=== PATIENT | male | born 1995 | race Caucasian/White ===

== ENCOUNTER 2016-10-13 13:47 | Emergency (ER) | payer MEDICAID, SELFPAY ==
[2016-10-13] MEDS ORDERED: LIDOCAINE 2% MDV 20 ML VIAL As Ordered ONE (14:32)
[2016-10-13] MEDS ORDERED: ADACEL/BOOSTRIX VACCINE (DIPHTH/PERTUSS/ACELL/TETANUS)0.5ML SYR (90715) As Ordered ONE (14:33)
[2016-10-13] MEDS ORDERED: AMMONIA AROMATIC INHALANT (FLOOR STOCK) As Ordered ONE (15:13)
--- NOTE | 2016-10-13 15:21 | REP ---
LEFT FINGERS, FOUR VIEWS: HISTORY: Foreign body. A nail is present in the soft tissue anterior to the distal phalanges of the 2nd and 3rd digits. There is no definite fracture or dislocation. The joint spaces are normal in appearance. IMPRESSION: A nail is present in the anterior soft tissue of the distal phalanges of the second and third digits. . Signed by Pramod Alvarez MD 10/13/2016 03:24 P
[2016-10-13] MEDS ORDERED: cefTRIAXone SOD 1 GM VIAL (J0696) As Ordered ONE (15:29)
--- NOTE | 2016-10-13 15:42 | REP ---
LEFT FINGERS, FOUR VIEWS: HISTORY: Foreign body removal. COMPARISON: 2:45 pm 10/13/2016. The patient is status post removal of a nail from the ventral soft tissue of the distal phalanges of the 2nd and 3rd digits. There is a small fracture along the ventral aspect of the distal phalange of the 2nd digit. There is no dislocation. The joint spaces are normal in appearance. IMPRESSION: 1. The patient is status post removal of a nail from the ventral soft tissue of the distal phalanges of the 2nd and 3rd digits. 2. Small fracture of the ventral surface of the distal phalange of the 2nd digit. Signed by Pramod Alvarez MD 10/13/2016 03:48 P
--- NOTE | 2016-10-13 15:55 | EDDOCDS ---
Physician Documentation [facility] Name: Mohit Bishop Age: 21 yrs Sex: Male : 1995 Arrival Date: 10/13/2016 Time: 13:47 Bed I7 / 29 Private MD: NO PRIMARY PHYSICIAN, . Disposition: 10/13/16 15:31 Discharged to Home/Self Care. Impression: Puncture wound with foreign body of left index finger with damage to nail, Puncture wound with foreign body of left middle finger without damage to nail, Nondisplaced fracture of distal phalanx of left index finger - OPEN Fx. - Condition is Stable. - Discharge Instructions: VIS, Tetanus, Diphtheria (Td) - CDC, Finger Fracture, [id number], Puncture Wound, [id number]. - Prescriptions for Augmentin 875- 125 mg Oral Tablet - take 1 tablet by ORAL route every 12 hours for 10 days; 20 tablet. Diclofenac Sodium 75 mg Oral Tablet, Delayed Release (E.C.) - take 1 tablet by ORAL route 2 times per day; 30 tablet. Tramadol 50 mg Oral Tablet - take 1 tablet by ORAL route 4 times per day As needed MDD: 4 tabs; 20 tablet. - Medication Reconciliation, Local Pharmacy Hours form. - Follow up: Orthopaedics, [facility]; When: Tomorrow; Reason: Further diagnostic work-up, Recheck today's complaints, Continuance of care. - Problem is new. - Symptoms have improved. Historical: - Allergies: No known drug Allergies; - Home Meds: 1. none - PMHx: none; - PSHx: none; - Social history: Smoking status: Patient uses tobacco products, light tobacco smoker. No barriers to communication noted, The patient speaks fluent Kiswahili. - Family history: Not pertinent. - : The pt / caregiver states he / she is not on anticoagulants. Home medication list is obtained from the patient. - Exposure Risk Screening:: None identified. - Tetanus status: unknown. Vital Signs: 10/13 13:49 BP 168 / 74; Pulse 72; Resp 18; Temp 98.8(O); Pulse Ox 100% on R/A; Weight 65.77 kg / elp 145 lbs (R); Height 5 ft. 9 in. (175.26 cm) (R); Pain 8/10; 15:34 BP 164 / 92; Pulse 54; Resp 18; Temp 98.5(O); Pulse Ox 99% on R/A; Pain 0/10; dem1 13:49 Body Mass Index 21.41 (65.77 kg, 175.26 cm) elp Procedures: 15:36 Foreign Body Removal: a nail, from the left palmar aspect of distal phalanx of left btw middle finger and palmar aspect of distal phalanx of left index finger, by Pliers. Dressing: fei was used to dress the wound, The patient tolerated the removal well, Digital block of LEFT 2nd and 3rd fingers with 4mL total of 2% lidocaine without Epi. Pt noted good effect. . 15:38 Fracture care/splinting: (Stabilizing Care) Splint applied to palmar aspect of distal btw phalanx of left index finger and palmar aspect of distal phalanx of left middle finger using finger splint, applied by myself. post reduction film - FB completely removed, Examined by me, post splint application: neurovascular intact, 2+ distal pulses palpable, brisk capillary refill noted, Patient tolerated well. MDM: 14:23 Lidocaine 20 mg/mL (2 %) 10 ml Infiltration once; to bedside ordered. btw 14:23 Tetanus- Diptheria-Acellular Pertussis 0.5 ml IM once; Routine booster 10-64yrs, >64 btw with child contact [employer] ordered. 14:25 Fingers Ordered. EDMS 14:26 Tetanus- Diptheria-Acellular Pertussis 0.5 ml IM once; Routine booster 10-64yrs, >64 cjh with child contact [employer] ordered. 14:26 Lidocaine 20 mg/mL (2 %) 10 ml Infiltration once; to bedside ordered. [facility] 15:00 [facility] Payment Agreement was scanned into [employer] and attached to record. jp5 15:00 Financial registration complete. jp5 15:12 Fingers Ordered. EDMS 15:28 cefTRIAXone 1 grams IM once ordered. btw 15:29 Wound Care ordered. btw Administered Medications: 14:37 Drug: Tetanus- Diptheria-Acellular Pertussis 0.5 ml [diphth,pertussis(acel),tetanus 2.5 dsf Lf unit-8 mcg-5 Lf/0.5mL IM syringe (0.5 mL)] {Civil Rights Investigator: [employer]. Exp: 11/03/2018. Lot #: [id number]. } Route: IM; Site: right deltoid; 14:38 Drug: Lidocaine 10 ml [lidocaine 20 mg/mL (2 %) injection solution (10 mL)] Route: dsf Infiltration; 15:33 Drug: cefTRIAXone 1 grams [ceftriaxone 1 gram solution for injection (1 grams)] Route: srm IM; Site: left deltoid; Signatures: Dispatcher MedHost EDJuli Baer RN RN Edna Bennett RN RN Lino Murphy PA PA btw Fuller, Desiree, RN RN dsf Hafner, JaneRN RN [facility] Leilani Pillai jp5 The chart was reviewed and I authenticate all verbal orders and agree with the evaluation and treatment provided.Attachments: 15:00 [facility] Payment Agreement jp5 MTDD
--- NOTE | 2016-10-13 15:55 | EDDOCDS ---
Nurse's Notes [facility] Name: Mohit Bishop Age: 21 yrs Sex: Male : 1995 Arrival Date: 10/13/2016 Time: 13:47 Bed I7 / 29 Private MD: NO PRIMARY PHYSICIAN, . Diagnosis: Puncture wound with foreign body of left index finger with damage to nail;Puncture wound with foreign body of left middle finger without damage to nail;Nondisplaced fracture of distal phalanx of left index finger-OPEN Fx Presentation: 10/13 14:07 Presenting complaint: Patient states: 1 hour ago was using a power nail gun ,nailing a kpj stud and nail went through the index into the middle finger. Adult Sepsis Screening: The patient does not have new or worsening altered mentation. Patient's respiratory rate is less than 22. Systolic blood pressure is greater than 100. Patient has a qSOFA score of 0- Negative Sepsis Screen. Suicide/Homicide risk assessment- the patient denies having any suicidal and/or homicidal ideations and does not present with any other emotional, behavioral or mental health complaints. Status: Patient is not a director of creative services or dependent. Transition of care: patient was not received from another setting of care. 14:07 Acuity: TRISTEN Level 3 kpj 14:07 Method Of Arrival: Walkin/Carried/Asstd kpj Triage Assessment: 14:10 General: Appears uncomfortable, Behavior is appropriate for age, pleasant. Pain: kpj Location: dorsal aspect of distal phalanx of left middle finger, palmar aspect of distal phalanx of left middle finger, palmar aspect of distal phalanx of left index finger and left index fingernail Pain currently is 7 out of 10 on a pain scale. Pt Declines HIV testing. Neurological: Level of Consciousness is awake, alert, Oriented to person, place, time. Respiratory: Airway is patent Respiratory effort is even, unlabored. Derm: Skin is pink, warm & dry. Musculoskeletal: Circulation, motion, and sensation intact Capillary refill < 3 seconds in left fingers 3 inch barbed framing nail through distal left index finger into distal left middle finger with glove still on left middle finger. Historical: - Allergies: No known drug Allergies; - Home Meds: 1. none - PMHx: none; - PSHx: none; - Social history: Smoking status: Patient uses tobacco products, light tobacco smoker. No barriers to communication noted, The patient speaks fluent Hong Konger. - Family history: Not pertinent. - : The pt / caregiver states he / she is not on anticoagulants. Home medication list is obtained from the patient. - Exposure Risk Screening:: None identified. - Tetanus status: unknown. Screenin:42 Screening information is obtained from the patient. Fall risk: No risks identified. srm Assistance ADL's: requires no assistance with activities of daily living. Abuse/DV Screen: The patient / caregiver reports he/she is: not in a situation that causes fear, pain or injury. Nutritional screening: No deficits noted. Advance Directives: There is no active DNR order. home support is adequate. Assessment: 14:38 Adult Sepsis Screening: The patient does not have new or worsening altered mentation. dsf Patient's respiratory rate is less than 22. Systolic blood pressure is greater than 100. Patient has a qSOFA score of 0- Negative Sepsis Screen. General: Appears in no apparent distress, Behavior is appropriate for age, cooperative. Pain: Location: palmar aspect of distal phalanx of left index finger and palmar aspect of distal phalanx of left middle finger Pain currently is 8 out of 10 on a pain scale. Quality of pain is described as throbbing. Neurological: Level of Consciousness is awake, alert. Cardiovascular: No deficits noted. Respiratory: No deficits noted. Derm: Skin is pink, warm & dry. Musculoskeletal: nail thru distal phalanx of left index finger and left middle finger. 15:42 General: dressings and aluminum splints to left middle and index finger . tolerated srm well. 15:54 General: Appears in no apparent distress, comfortable, Behavior is appropriate for age, dsf cooperative. Pain: Denies pain. Neurological: Level of Consciousness is awake, alert. Cardiovascular: No deficits noted. Respiratory: No deficits noted. Derm: Skin is pink, warm & dry. Vital Signs: 13:49 BP 168 / 74; Pulse 72; Resp 18; Temp 98.8(O); Pulse Ox 100% on R/A; Weight 65.77 kg elp (R); Height 5 ft. 9 in. (175.26 cm) (R); Pain 8/10; 15:34 BP 164 / 92; Pulse 54; Resp 18; Temp 98.5(O); Pulse Ox 99% on R/A; Pain 0/10; dem1 13:49 Body Mass Index 21.41 (65.77 kg, 175.26 cm) elp Vitals: 13:49 Log In Time: October 13, 2016 at 13:46. elp ED Course: 13:48 Patient visited by Leah Lacey PCA. elp 13:48 Patient moved to Waiting elp 13:49 NO PRIMARY PHYSICIAN, . is Private Physician. elp 13:49 Patient visited by Leah Lacey PCA. elp 13:49 Patient moved to Pre RCE elp 14:09 Triage Initiated kp 14:12 Lino Rivers PA is PHCP. btw 14:12 Татьяна Menchaca MD is Attending Physician. btw 14:13 Patient moved to Triage 2 kpj 14:14 Patient visited by Lino Rivers PA. btw 14:27 Patient moved to I7 / 29 cjh 14:36 Patient moved to Radiology dem1 14:37 Patient moved to I7 / 29 dsf 14:39 Patient visited by Karen Eid RN. dsf 15:00 [facility] Payment Agreement was scanned into [employer] and attached to record. jp5 15:30 Patient name changed from Mohit\S\A\S\White\S\ to Mohit\S\Tommy\S\White. EDMS 15:30 Orthopaedics, [facility] is Referral Physician. btw 15:30 Fingers Returned. EDMS 15:36 Patient visited by Yadiel Mirza. [facility] 15:42 The patient / caregiver is instructed regarding the plan of care and ED course. srm Accompanied by Friend, Patient has correct armband on for positive identification. 15:42 No IV's were initiated during this patient's visit. No procedures done that require srm assistance. 15:43 Patient visited by Edna Salas, INO. srm Administered Medications: 14:37 Drug: Tetanus- Diptheria-Acellular Pertussis 0.5 ml [diphth,pertussis(acel),tetanus 2.5 dsf Lf unit-8 mcg-5 Lf/0.5mL IM syringe (0.5 mL)] {Busher Helper: [employer]. Exp: 11/03/2018. Lot #: [id number]. } Route: IM; Site: right deltoid; 14:38 Drug: Lidocaine 10 ml [lidocaine 20 mg/mL (2 %) injection solution (10 mL)] Route: dsf Infiltration; 15:33 Drug: cefTRIAXone 1 grams [ceftriaxone 1 gram solution for injection (1 grams)] Route: [facility] IM; Site: left deltoid; Order Results: Radiology Order: Fingers Test: Fingers REASON FOR EXAMINATION: Foreign Body; LEFT FINGERS, FOUR VIEWS:; ; HISTORY: Foreign body.; ; A nail is present in the soft tissue anterior to the distal phalanges of the 2nd; and 3rd digits. There is no definite fracture or dislocation. The joint spaces; are normal in appearance.; ; IMPRESSION:; ; A nail is present in the anterior soft tissue of the distal phalanges of the; second and third digits. .; ; ; ; Unreviewed; Outcome: 15:31 Discharge ordered by Provider. btw 15:54 Discharge Assessment: Patient awake, alert and oriented x 3. No cognitive and/or dsf functional deficits noted. Patient verbalized understanding of disposition instructions. patient administered narcotics - no. The following High Risk Discharge criteria are identified: None. Discharged to home ambulatory. Condition: stable. Discharge instructions given to patient, Instructed on discharge instructions, follow up and referral plans. medication usage, no driving heavy equipment, wound care, Demonstrated understanding of instructions, medications, Pt was receptive of discharge instructions/ teaching. Prescriptions given X 3. No special radiology studies were completed. Property sent home with patient. 15:55 Patient left the ED. dsf Signatures: Dispatcher [employer] EDJuli Baer RN RN kpj Michelson, Staci, RN RN srm Wolfenden, Brandon, PA PA btKaren Malagon RN RN dsf Mack, Demeishia dem1 Hafner, Jane, RN RN [facility] Leah Lacey, JAVY MATERIALS MANAGEMENT SUPERVISOR Leilani Guo jp5 [facility]
--- NOTE | 2016-10-15 16:56 | EDDOCDS ---
Nurse's Notes [facility] Name: Mohit Bishop Age: 21 yrs Sex: Male : 1995 Arrival Date: 10/13/2016 Time: 13:47 Bed I7 / 29 Private MD: NO PRIMARY PHYSICIAN, . Diagnosis: Puncture wound with foreign body of left index finger with damage to nail;Puncture wound with foreign body of left middle finger without damage to nail;Nondisplaced fracture of distal phalanx of left index finger-OPEN Fx Presentation: 10/13 14:07 Presenting complaint: Patient states: 1 hour ago was using a power nail gun ,nailing a kpj stud and nail went through the index into the middle finger. Adult Sepsis Screening: The patient does not have new or worsening altered mentation. Patient's respiratory rate is less than 22. Systolic blood pressure is greater than 100. Patient has a qSOFA score of 0- Negative Sepsis Screen. Suicide/Homicide risk assessment- the patient denies having any suicidal and/or homicidal ideations and does not present with any other emotional, behavioral or mental health complaints. Status: Patient is not a automotive service consultant or dependent. Transition of care: patient was not received from another setting of care. 14:07 Acuity: TRISTEN Level 3 kpj 14:07 Method Of Arrival: Walkin/Carried/Asstd kpj Triage Assessment: 14:10 General: Appears uncomfortable, Behavior is appropriate for age, pleasant. Pain: kpj Location: dorsal aspect of distal phalanx of left middle finger, palmar aspect of distal phalanx of left middle finger, palmar aspect of distal phalanx of left index finger and left index fingernail Pain currently is 7 out of 10 on a pain scale. Pt Declines HIV testing. Neurological: Level of Consciousness is awake, alert, Oriented to person, place, time. Respiratory: Airway is patent Respiratory effort is even, unlabored. Derm: Skin is pink, warm & dry. Musculoskeletal: Circulation, motion, and sensation intact Capillary refill < 3 seconds in left fingers 3 inch barbed framing nail through distal left index finger into distal left middle finger with glove still on left middle finger. Historical: - Allergies: No known drug Allergies; - Home Meds: 1. none - PMHx: none; - PSHx: none; - Social history: Smoking status: Patient uses tobacco products, light tobacco smoker. No barriers to communication noted, The patient speaks fluent [place]ian. - Family history: Not pertinent. - : The pt / caregiver states he / she is not on anticoagulants. Home medication list is obtained from the patient. - Exposure Risk Screening:: None identified. - Tetanus status: unknown. Screenin:42 Screening information is obtained from the patient. Fall risk: No risks identified. srm Assistance ADL's: requires no assistance with activities of daily living. Abuse/DV Screen: The patient / caregiver reports he/she is: not in a situation that causes fear, pain or injury. Nutritional screening: No deficits noted. Advance Directives: There is no active DNR order. home support is adequate. Assessment: 14:38 Adult Sepsis Screening: The patient does not have new or worsening altered mentation. dsf Patient's respiratory rate is less than 22. Systolic blood pressure is greater than 100. Patient has a qSOFA score of 0- Negative Sepsis Screen. General: Appears in no apparent distress, Behavior is appropriate for age, cooperative. Pain: Location: palmar aspect of distal phalanx of left index finger and palmar aspect of distal phalanx of left middle finger Pain currently is 8 out of 10 on a pain scale. Quality of pain is described as throbbing. Neurological: Level of Consciousness is awake, alert. Cardiovascular: No deficits noted. Respiratory: No deficits noted. Derm: Skin is pink, warm & dry. Musculoskeletal: nail thru distal phalanx of left index finger and left middle finger. 15:42 General: dressings and aluminum splints to left middle and index finger . tolerated srm well. 15:54 General: Appears in no apparent distress, comfortable, Behavior is appropriate for age, dsf cooperative. Pain: Denies pain. Neurological: Level of Consciousness is awake, alert. Cardiovascular: No deficits noted. Respiratory: No deficits noted. Derm: Skin is pink, warm & dry. Vital Signs: 13:49 BP 168 / 74; Pulse 72; Resp 18; Temp 98.8(O); Pulse Ox 100% on R/A; Weight 65.77 kg elp (R); Height 5 ft. 9 in. (175.26 cm) (R); Pain 8/10; 15:34 BP 164 / 92; Pulse 54; Resp 18; Temp 98.5(O); Pulse Ox 99% on R/A; Pain 0/10; dem1 13:49 Body Mass Index 21.41 (65.77 kg, 175.26 cm) elp Vitals: 13:49 Log In Time: October 13, 2016 at 13:46. elp ED Course: 13:48 Patient visited by Leah Lacey PCA. elp 13:48 Patient moved to Waiting elp 13:49 NO PRIMARY PHYSICIAN, . is Private Physician. elp 13:49 Patient visited by Leah Lacey PCA. elp 13:49 Patient moved to Pre RCE elp 14:09 Triage Initiated kp 14:12 Lino Rivers PA is PHCP. btw 14:12 Татьяна Menchaca MD is Attending Physician. btw 14:13 Patient moved to Triage 2 kpj 14:14 Patient visited by Lino Rivers PA. btw 14:27 Patient moved to I7 / 29 cj 14:36 Patient moved to Radiology dem1 14:37 Patient moved to I7 / 29 dsf 14:39 Patient visited by Karen Edi RN. dsf 15:00 [facility] Payment Agreement was scanned into [employer] and attached to record. jp5 15:30 Patient name changed from Mohit\S\A\S\White\S\ to Mohit\S\Tommy\S\White. EDMS [facility] b[facility] 15:30 Fingers Returned. EDMS 15:36 Patient visited by Yadiel Mirza. [facility] 15:42 The patient / caregiver is instructed regarding the plan of care and ED course. srm Accompanied by Friend, Patient has correct armband on for positive identification. 15:42 No IV's were initiated during this patient's visit. No procedures done that require srm assistance. 15:43 Patient visited by Edna Salas RN. srm 16:23 Fingers Returned. EDMS 10/14 11:48 T-Sheet-- Draft Copy was scanned into [employer] and attached to record. gb Administered Medications: 10/13 14:37 Drug: Tetanus- Diptheria-Acellular Pertussis 0.5 ml [diphth,pertussis(acel),tetanus 2.5 dsf Lf unit-8 mcg-5 Lf/0.5mL IM syringe (0.5 mL)] {Lease Administrator: [employer]. Exp: 11/03/2018. Lot #: [id number]. } Route: IM; Site: right deltoid; 14:38 Drug: Lidocaine 10 ml [lidocaine 20 mg/mL (2 %) injection solution (10 mL)] Route: dsf Infiltration; 15:33 Drug: cefTRIAXone 1 grams [ceftriaxone 1 gram solution for injection (1 grams)] Route: srm IM; Site: left deltoid; Order Results: Radiology Order: Fingers Test: Fingers REASON FOR EXAMINATION: Foreign Body; LEFT FINGERS, FOUR VIEWS:; ; HISTORY: Foreign body.; ; A nail is present in the soft tissue anterior to the distal phalanges of the 2nd; and 3rd digits. There is no definite fracture or dislocation. The joint spaces; are normal in appearance.; ; IMPRESSION:; ; A nail is present in the anterior soft tissue of the distal phalanges of the; second and third digits. .; ; ; Signed by; Pramod Alvarez MD 10/13/2016 03:24 P; Radiology Order: Fingers Test: Fingers REASON FOR EXAMINATION: POST fb REMOVAL; LEFT FINGERS, FOUR VIEWS:; ; HISTORY: Foreign body removal.; ; COMPARISON: 2:45 pm 10/13/2016.; ; The patient is status post removal of a nail from the ventral soft tissue of the; distal phalanges of the 2nd and 3rd digits. There is a small fracture along the; ventral aspect of the distal phalange of the 2nd digit. There is no dislocation.; The joint spaces are normal in appearance.; ; IMPRESSION:; ; 1. The patient is status post removal of a nail from the ventral soft tissue of; the distal phalanges of the 2nd and 3rd digits.; ; 2. Small fracture of the ventral surface of the distal phalange of the 2nd; digit.; ; ; Signed by; Pramod Alvarez MD 10/13/2016 03:48 P; Outcome: 15:31 Discharge ordered by Provider. btw 15:54 Discharge Assessment: Patient awake, alert and oriented x 3. No cognitive and/or dsf functional deficits noted. Patient verbalized understanding of disposition instructions. patient administered narcotics - no. The following High Risk Discharge criteria are identified: None. Discharged to home ambulatory. Condition: stable. Discharge instructions given to patient, Instructed on discharge instructions, follow up and referral plans. medication usage, no driving heavy equipment, wound care, Demonstrated understanding of instructions, medications, Pt was receptive of discharge instructions/ teaching. Prescriptions given X 3. No special radiology studies were completed. Property sent home with patient. 15:55 Patient left the ED. dsf Signatures: Dispatcher MedHost EDJuli Baer RN RN Edna Saez RN RN [facility] Steph Humphrey, Reg Reg gb Lino Rivers PA PA btw Fuller, Desiree,RN RN Yadiel Buckley1 Radha ShelbyRN RN [facility] Leah Lacey, Leilani Rae jp5 Chart Complete [id number]
--- NOTE | 2016-10-15 16:56 | EDDOCDS ---
Physician Documentation [facility] Name: Mohit Bishop Age: 21 yrs Sex: Male : 1995 Arrival Date: 10/13/2016 Time: 13:47 Bed I7 / 29 Private MD: NO PRIMARY PHYSICIAN, . Disposition: 10/13/16 15:31 Discharged to Home/Self Care. Impression: Puncture wound with foreign body of left index finger with damage to nail, Puncture wound with foreign body of left middle finger without damage to nail, Nondisplaced fracture of distal phalanx of left index finger - OPEN Fx. - Condition is Stable. - Discharge Instructions: VIS, Tetanus, Diphtheria (Td) - CDC, Finger Fracture, [id number], Puncture Wound, [id number]. - Prescriptions for Augmentin 875- 125 mg Oral Tablet - take 1 tablet by ORAL route every 12 hours for 10 days; 20 tablet. Diclofenac Sodium 75 mg Oral Tablet, Delayed Release (E.C.) - take 1 tablet by ORAL route 2 times per day; 30 tablet. Tramadol 50 mg Oral Tablet - take 1 tablet by ORAL route 4 times per day As needed MDD: 4 tabs; 20 tablet. - Medication Reconciliation, Local Pharmacy Hours form. - Follow up: Orthopaedics, [facility]; When: Tomorrow; Reason: Further diagnostic work-up, Recheck today's complaints, Continuance of care. - Problem is new. - Symptoms have improved. Historical: - Allergies: No known drug Allergies; - Home Meds: 1. none - PMHx: none; - PSHx: none; - Social history: Smoking status: Patient uses tobacco products, light tobacco smoker. No barriers to communication noted, The patient speaks fluent Andorran. - Family history: Not pertinent. - : The pt / caregiver states he / she is not on anticoagulants. Home medication list is obtained from the patient. - Exposure Risk Screening:: None identified. - Tetanus status: unknown. Vital Signs: 10/13 13:49 BP 168 / 74; Pulse 72; Resp 18; Temp 98.8(O); Pulse Ox 100% on R/A; Weight 65.77 kg / elp 145 lbs (R); Height 5 ft. 9 in. (175.26 cm) (R); Pain 8/10; 15:34 BP 164 / 92; Pulse 54; Resp 18; Temp 98.5(O); Pulse Ox 99% on R/A; Pain 0/10; dem1 13:49 Body Mass Index 21.41 (65.77 kg, 175.26 cm) elp Procedures: 15:36 Foreign Body Removal: a nail, from the left palmar aspect of distal phalanx of left btw middle finger and palmar aspect of distal phalanx of left index finger, by Pliers. Dressing: fei was used to dress the wound, The patient tolerated the removal well, Digital block of LEFT 2nd and 3rd fingers with 4mL total of 2% lidocaine without Epi. Pt noted good effect. . 15:38 Fracture care/splinting: (Stabilizing Care) Splint applied to palmar aspect of distal btw phalanx of left index finger and palmar aspect of distal phalanx of left middle finger using finger splint, applied by myself. post reduction film - FB completely removed, Examined by me, post splint application: neurovascular intact, 2+ distal pulses palpable, brisk capillary refill noted, Patient tolerated well. MDM: 14:23 Lidocaine 20 mg/mL (2 %) 10 ml Infiltration once; to bedside ordered. btw 14:23 Tetanus- Diptheria-Acellular Pertussis 0.5 ml IM once; Routine booster 10-64yrs, >64 btw with child contact [employer] ordered. 14:25 Fingers Ordered. EDMS 14:26 Tetanus- Diptheria-Acellular Pertussis 0.5 ml IM once; Routine booster 10-64yrs, >64 cjh with child contact [employer] ordered. 14:26 Lidocaine 20 mg/mL (2 %) 10 ml Infiltration once; to bedside ordered. [facility] 15:00 [place] [place] Payment Agreement was scanned into [employer] and attached to record. jp5 15:00 Financial registration complete. jp5 15:12 Fingers Ordered. EDMS 15:28 cefTRIAXone 1 grams IM once ordered. btw 15:29 Wound Care ordered. btw 10/14 11:48 T-Sheet-- Draft Copy was scanned into [employer] and attached to record. gb Administered Medications: 10/13 14:37 Drug: Tetanus- Diptheria-Acellular Pertussis 0.5 ml [diphth,pertussis(acel),tetanus 2.5 dsf Lf unit-8 mcg-5 Lf/0.5mL IM syringe (0.5 mL)] {Waste Elimination: [employer]. Exp: 11/03/2018. Lot #: [id number]. } Route: IM; Site: right deltoid; 14:38 Drug: Lidocaine 10 ml [lidocaine 20 mg/mL (2 %) injection solution (10 mL)] Route: dsf Infiltration; 15:33 Drug: cefTRIAXone 1 grams [ceftriaxone 1 gram solution for injection (1 grams)] Route: srm IM; Site: left deltoid; Signatures: Dispatcher [employer] EDJuli Baer RN RN Edna Saez RN RN Steph Nicholson, Alejandro Reg Lino Dhillon PA PA btw Fuller, DesireeRN RN Radha CohenRN RN [facility] Leilani Plilai jp5 The chart was reviewed and I authenticate all verbal orders and agree with the evaluation and treatment provided.Attachments: 15:00 [facility] Payment Agreement jp5 10/14 11:48 T-Sheet-- Draft Copy gb Chart Complete MTDD
--- NOTE | 2016-10-15 16:56 | EDDOCDS ---
Physician Documentation [facility] Name: Mohit Bishop Age: 21 yrs Sex: Male : 1995 Arrival Date: 10/13/2016 Time: 13:47 Bed I7 / 29 Private MD: NO PRIMARY PHYSICIAN, . Disposition: 10/13/16 15:31 Discharged to Home/Self Care. Impression: Puncture wound with foreign body of left index finger with damage to nail, Puncture wound with foreign body of left middle finger without damage to nail, Nondisplaced fracture of distal phalanx of left index finger - OPEN Fx. - Condition is Stable. - Discharge Instructions: VIS, Tetanus, Diphtheria (Td) - CDC, Finger Fracture, [id number], Puncture Wound, [id number]. - Prescriptions for Augmentin 875- 125 mg Oral Tablet - take 1 tablet by ORAL route every 12 hours for 10 days; 20 tablet. Diclofenac Sodium 75 mg Oral Tablet, Delayed Release (E.C.) - take 1 tablet by ORAL route 2 times per day; 30 tablet. Tramadol 50 mg Oral Tablet - take 1 tablet by ORAL route 4 times per day As needed MDD: 4 tabs; 20 tablet. - Medication Reconciliation, Local Pharmacy Hours form. - Follow up: Orthopaedics, [facility]; When: Tomorrow; Reason: Further diagnostic work-up, Recheck today's complaints, Continuance of care. - Problem is new. - Symptoms have improved. Historical: - Allergies: No known drug Allergies; - Home Meds: 1. none - PMHx: none; - PSHx: none; - Social history: Smoking status: Patient uses tobacco products, light tobacco smoker. No barriers to communication noted, The patient speaks fluent Kuwaiti. - Family history: Not pertinent. - : The pt / caregiver states he / she is not on anticoagulants. Home medication list is obtained from the patient. - Exposure Risk Screening:: None identified. - Tetanus status: unknown. Vital Signs: 10/13 13:49 BP 168 / 74; Pulse 72; Resp 18; Temp 98.8(O); Pulse Ox 100% on R/A; Weight 65.77 kg / elp 145 lbs (R); Height 5 ft. 9 in. (175.26 cm) (R); Pain 8/10; 15:34 BP 164 / 92; Pulse 54; Resp 18; Temp 98.5(O); Pulse Ox 99% on R/A; Pain 0/10; dem1 13:49 Body Mass Index 21.41 (65.77 kg, 175.26 cm) elp Procedures: 15:36 Foreign Body Removal: a nail, from the left palmar aspect of distal phalanx of left btw middle finger and palmar aspect of distal phalanx of left index finger, by Pliers. Dressing: fei was used to dress the wound, The patient tolerated the removal well, Digital block of LEFT 2nd and 3rd fingers with 4mL total of 2% lidocaine without Epi. Pt noted good effect. . 15:38 Fracture care/splinting: (Stabilizing Care) Splint applied to palmar aspect of distal btw phalanx of left index finger and palmar aspect of distal phalanx of left middle finger using finger splint, applied by myself. post reduction film - FB completely removed, Examined by me, post splint application: neurovascular intact, 2+ distal pulses palpable, brisk capillary refill noted, Patient tolerated well. MDM: 14:23 Lidocaine 20 mg/mL (2 %) 10 ml Infiltration once; to bedside ordered. btw 14:23 Tetanus- Diptheria-Acellular Pertussis 0.5 ml IM once; Routine booster 10-64yrs, >64 btw with child contact [employer] ordered. 14:25 Fingers Ordered. EDMS 14:26 Tetanus- Diptheria-Acellular Pertussis 0.5 ml IM once; Routine booster 10-64yrs, >64 cjh with child contact [employer] ordered. 14:26 Lidocaine 20 mg/mL (2 %) 10 ml Infiltration once; to bedside ordered. [facility] 15:00 [place] [place] Payment Agreement was scanned into [employer] and attached to record. jp5 15:00 Financial registration complete. jp5 15:12 Fingers Ordered. EDMS 15:28 cefTRIAXone 1 grams IM once ordered. btw 15:29 Wound Care ordered. btw 10/14 11:48 T-Sheet-- Draft Copy was scanned into [employer] and attached to record. gb Administered Medications: 10/13 14:37 Drug: Tetanus- Diptheria-Acellular Pertussis 0.5 ml [diphth,pertussis(acel),tetanus 2.5 dsf Lf unit-8 mcg-5 Lf/0.5mL IM syringe (0.5 mL)] {Product Marketing Specialist: [employer]. Exp: 11/03/2018. Lot #: [id number]. } Route: IM; Site: right deltoid; 14:38 Drug: Lidocaine 10 ml [lidocaine 20 mg/mL (2 %) injection solution (10 mL)] Route: dsf Infiltration; 15:33 Drug: cefTRIAXone 1 grams [ceftriaxone 1 gram solution for injection (1 grams)] Route: srm IM; Site: left deltoid; Signatures: Dispatcher [employer] EDJuli Baer RN RN Edna Saez RN RN Steph Nicholson, Alejandro Reg Lino Dhillon PA PA btw Fuller, DesireeRN RN Radha CohenRN RN [facility] Leilani Pillai jp5 The chart was reviewed and I authenticate all verbal orders and agree with the evaluation and treatment provided.Attachments: 15:00 [facility] Payment Agreement jp5 10/14 11:48 T-Sheet-- Draft Copy gb Chart Complete MTDD
== END 2016-10-13 15:55 | disposition home or self-care (01) ==
LOC: M ED 13:47
DX: S62.661B Nondisplaced fracture of distal phalanx of left index finger, initial encounter for open fracture (principal); S61.343A Puncture wound with foreign body of left middle finger with damage to nail, initial encounter; W29.4XXA Contact with nail gun, initial encounter; Y92.098 Other place in other non-institutional residence as the place of occurrence of the external cause; Y93.H3 Activity, building and construction; Y99.8 Other external cause status; F17.210 Nicotine dependence, cigarettes, uncomplicated
CPT/HCPCS: 10120; 73140; 90471; 90715; 96372; 99283; J0696

== ENCOUNTER 2022-01-30 08:09 | Emergency (ER) | payer OTHER, SELFPAY ==
[~2022-01-30] VITALS: Ht 175.3 cm; Wt 65.5 kg
[2022-01-30] MEDS ORDERED: IBUP200C25 PO (08:13)
[2022-01-30] MEDS ORDERED: NORCO, ANEXSIA 5/325MG TABLET (HYDROcodone/ACETAMINOPHEN) PO ONE (09:45)
[2022-01-30 10:27] VITALS: BP 144/84
== END 2022-01-30 10:31 | disposition home or self-care (01) ==
LOC: M ED 08:09
DX: S62.316A Displaced fracture of base of fifth metacarpal bone, right hand, initial encounter for closed fracture (principal); W22.09XA Striking against other stationary object, initial encounter; F17.200 Nicotine dependence, unspecified, uncomplicated; Y92.009 Unspecified place in unspecified non-institutional (private) residence as the place of occurrence of the external cause; Y93.9 Activity, unspecified; Y99.9 Unspecified external cause status

== ENCOUNTER → 2022-02-07 | Outpatient (CLI) | payer OTHER ==
[~2022-02-07] MED LIST: IBUP200C25 PO
== END ==
LOC: M SOG 11:56
PROVIDERS: ATTEND Physician Assistant
DX: S62.661D Nondisplaced fracture of distal phalanx of left index finger, subsequent encounter for fracture with routine healing (principal)

== ENCOUNTER → 2022-03-01 | Outpatient (CLI) | payer OTHER | LOC: M SOG 07:57 | PROVIDERS: ATTEND Orthopaedic Surgery Hand Surgery | DX: S62.316D Displaced fracture of base of fifth metacarpal bone, right hand, subsequent encounter for fracture with routine healing (principal) ==

== ENCOUNTER → 2024-10-03 | Outpatient (REF) | payer OTHER ==
[2024-10-03 17:51] LABS: BASO # 0.1 10^3/uL (0.0-0.2); BASO % 2.4 % (0.0-1.0); EOS # 0.1 10^3/uL (0.0-0.5); EOS % 2.2 % (0.0-3.0); HEMATOCRIT 43.4 % (42.0-52.0); HEMOGLOBIN 14.5 g/dl (13.5-17.5); LYMPH % 25.1 % (24.0-44.0); MEAN CORPUSCULAR HEMOGLOBIN 29.7 pg (27.0-33.0); MEAN CORPUSCULAR HGB CONC 33.4 g/dl (32.0-36.5); MEAN CORPUSCULAR VOLUME 88.8 fl (80.0-96.0); MONO # 0.3 10^3/uL (0.0-0.8); NEUTROPHILS # 2.6 10^3/uL (1.5-8.5); NEUTROPHILS % 62.3 % (36.0-66.0); PLATELET COUNT, AUTOMATED 312 10^3/uL (150-450); RED BLOOD COUNT 4.89 10^6/uL (4.30-6.10); WHITE BLOOD COUNT 4.1 10^3/uL (4.0-10.0)
[2024-10-03 18:24] LABS: ALBUMIN 4.3 G/DL (3.2-5.2); ALKALINE PHOSPHATASE 74 U/L (40-129); ALT/SGPT 24 U/L (7.0-40); AST/SGOT 25 U/L (<34); BILIRUBIN,TOTAL 0.6 MG/DL (0.3-1.2); BLOOD UREA NITROGEN 6 MG/DL (9-23); CARBON DIOXIDE LEVEL 26 MMOL/L (20-31); CHLORIDE LEVEL 104 MMOL/L (98-107); CREATININE FOR GFR 0.65 MG/DL (0.70-1.30); GLOMERULAR FILTRATION RATE > 60.0 (>60); GLUCOSE, FASTING 84 MG/DL (60-100); POTASSIUM SERUM 4.6 MMOL/L (3.5-5.1); SODIUM LEVEL 142 MMOL/L (136-145); THYROID STIMULATING HORMONE 0.835 uIU/ML (0.55-4.78); TOTAL PROTEIN 7.7 G/DL (5.7-8.2)
== END ==
LOC: M SFHCCAPE 09:18
PROVIDERS: ATTEND Physician Assistant Medical
DX: F51.3 Sleepwalking [somnambulism] (principal); R21 Rash and other nonspecific skin eruption

== ENCOUNTER → 2024-10-09 | Outpatient (CLI) | payer OTHER | LOC: M OUTALCOH 10:22 | PROVIDERS: ATTEND Psychiatry & Neurology Psychiatry | DX: F10.20 Alcohol dependence, uncomplicated (principal) ==

== ENCOUNTER → 2024-10-18 | Outpatient (RCR) | payer OTHER | LOC: M OUTALCOH 09:15 | PROVIDERS: ATTEND Psychiatry & Neurology Psychiatry | DX: Z03.89 Encounter for observation for other suspected diseases and conditions ruled out (principal) ==